=== PATIENT | female | born 1940 | race Caucasian/White ===

== ENCOUNTER → 2019-02-26 09:38 | Outpatient (BNVA) | payer MEDICARE, SELFPAY | PROVIDERS: PCP Nurse Practitioner Family; Visit Provider Nurse Practitioner Family | DX: I10 Essential (primary) hypertension (principal); E11.9 Type 2 diabetes mellitus without complications; E78.2 Mixed hyperlipidemia | CPT/HCPCS: 80053; 80061; 83036; 85025 ==

== ENCOUNTER → 2019-06-13 08:14 | Outpatient (BNVA) | payer MEDICARE, SELFPAY | PROVIDERS: PCP Nurse Practitioner Family; Visit Provider Nurse Practitioner Family | DX: Z12.11 Encounter for screening for malignant neoplasm of colon (principal) | CPT/HCPCS: 82270 ==

== ENCOUNTER → 2019-06-24 13:45 | Outpatient (BNVA) | payer MEDICARE, SELFPAY | PROVIDERS: PCP Nurse Practitioner Family; Visit Provider Nurse Practitioner Family | DX: Z12.11 Encounter for screening for malignant neoplasm of colon (principal); M54.6 Pain in thoracic spine | CPT/HCPCS: 81000; 81003 ==

== ENCOUNTER 2019-08-12 08:52 | Day surgery (SDC) | payer MEDICARE, SELFPAY ==
[2019-08-09 09:10] VITALS: BMI 3880.6
[2019-08-12 09:43] VITALS: BP 176/96; PULSE 97; RESP 18; TEMP 36.3; O2SAT 99
[2019-08-12] MEDS: sodium chloride 0.9% 1,000 ML 30 ML IV (09:44)
--- NOTE | 2019-08-12 09:45 | ANES.PREANE2 ---
Pre-Anesthetic Assessment Pre-Anesthetic Assessment: Height/Weight: Height 12.7 cm Weight 62.596 kg Temp Pulse Resp BP Pulse Ox 97.3 F L 97 18 176/96 99 08/12/19 09:43 08/12/19 09:43 08/12/19 09:43 08/12/19 09:43 08/12/19 09:43 Preop Diagnosis: polyps Proposed Procedure: Operation Date: 08/12/19 09:45 Proposed Procedures p Colonoscopy [id number] [id number](Not Applicable) - Mikhail Chen MD Familial anesthetic complications: None Was Beta Lynne taken within 24 hours: N/A Last intake: Intake Last Liquid Date 08/11/19 Last Liquid Time 22:00 Last Solid Date 08/10/19 Social: Social History: No alcohol and No tobacco Exam: Pre-Anes Outpt Exam: alert, oriented x 3, clear to auscultation bilaterally and regular rate & rhythm Airway: Cervical ROM: WNL MP: 2 Additional comments: missing CV/HEM: CV/HEM: HTN GI: GI: GERD Metabolic: Metabolic: DM and Hyperlipidemia Musc/skel: Musc/skel: Lower Back Pain Anesthetic Plan: ASA status: 2 Anesthesia: MAC Risk of > 500 ml blood loss (7ml/kg in children): No Meds/Allergies Current Medications: Current Medications Generic Name Dose Route Start Last Admin Trade Name Freq PRN Reason Stop Dose Admin Sodium Chloride 1,000 mls @ 30 ml s/hr 08/12/19 08:45 08/12/19 09:44 Sodium Chloride 0.9% IV 08/13/19 08:44 30 mls/hr .Q24H GONSALO Administration PFSH Anesthesia PFSH: Medical History (Updated 08/05/19 @ 14:06 by Mikhail Chen MD) Diabetes Hyperlipidemia Family History Mother Cancer Father Diabetes Social History (Updated 08/05/19 @ 13:47 by ERIBERTO Pineda) Smoking and tobacco status: former smoker Alcohol intake: never Marital status: / History of recent travel: No Data Anesthesia Cardiac Studies: No Data to Display
[2019-08-12 09:51] LABS: Glucose Point of Care 179 mg/dL (70-110)
[2019-08-12 11:16] VITALS: BP 147/90; PULSE 78; RESP 16; TEMP 36.3; O2SAT 98
[2019-08-12 11:29] VITALS: BP 134/87; PULSE 77; RESP 18; O2SAT 97
--- NOTE | 2019-08-12 12:42 | ANE.PACU2 ---
Inpatient post-anesthesia follow up: Airway intact: Yes Vital signs: Temperature 97.3 F Pulse Rate 77 Respiratory Rate 18 Blood Pressure 134/87 Pulse Oximetry 97 Oxygen Delivery Me thod Room Air Oxygen Flow Rate 4 Fraction of Inspir ed Oxygen Hydration adequate: Yes Nausea and vomiting: No Mental status: Baseline
--- NOTE | 2019-08-13 17:19 | W.PM.OPSUD ---
Surgery/Procedure H&P Update DATE OF PROCEDURE: August 13, 2019 DATE H&P PERFORMED: 08/05/19 PREOP DIAGNOSIS: polyps PLANNED PROCEDURE: Operation Date: 08/12/19 09:45 Proposed Procedures p Colonoscopy [id number] [id number](Not Applicable) - Mikhail Chen MD
== END 2019-08-12 09:40 | disposition home or self-care (01) ==
PROVIDERS: PCP Nurse Practitioner Family; Visit Provider Internal Medicine
PROC: 0DJD8ZZ Inspection of Lower Intestinal Tract, Via Natural or Artificial Opening Endoscopic (ICD-10-PCS; CPT 45378; principal; 2019-08-12 09:45)
DX: Z86.010 Personal history of colon polyps (principal); K21.9 Gastro-esophageal reflux disease without esophagitis; I10 Essential (primary) hypertension; E11.9 Type 2 diabetes mellitus without complications; E78.5 Hyperlipidemia, unspecified; Z87.891 Personal history of nicotine dependence
CPT/HCPCS: 12345; 36416; 45378; 82962; J2704; J7030

== ENCOUNTER → 2019-09-17 11:23 | Outpatient (BNVA) | payer MEDICARE, SELFPAY | PROVIDERS: PCP Nurse Practitioner Family; Visit Provider Nurse Practitioner Family | DX: E11.9 Type 2 diabetes mellitus without complications (principal); R19.7 Diarrhea, unspecified; I10 Essential (primary) hypertension | CPT/HCPCS: 80053; 80061; 82043; 83036; 85025 ==

== ENCOUNTER → 2019-12-16 12:04 | Outpatient (BNVA) | payer MEDICARE, SELFPAY | PROVIDERS: PCP Nurse Practitioner Family; Visit Provider Nurse Practitioner Family | DX: E11.9 Type 2 diabetes mellitus without complications (principal) | CPT/HCPCS: 80048; 83036 ==

== ENCOUNTER → 2020-01-28 13:33 | Outpatient (BNVA) | payer MEDICARE, SELFPAY | PROVIDERS: PCP Nurse Practitioner Family; Visit Provider Nurse Practitioner Family | DX: N30.01 Acute cystitis with hematuria (principal) | CPT/HCPCS: 81003 ==

== ENCOUNTER → 2020-03-16 09:19 | Outpatient (BNVA) | payer MEDICARE, SELFPAY | PROVIDERS: PCP Nurse Practitioner Family; Visit Provider Nurse Practitioner Family | DX: E11.9 Type 2 diabetes mellitus without complications (principal); E78.2 Mixed hyperlipidemia; I10 Essential (primary) hypertension; M79.10 Myalgia, unspecified site | CPT/HCPCS: 80053; 80061; 82306; 83036; 84443; 85025 ==

== ENCOUNTER → 2020-04-13 13:29 | Outpatient (BNVA) | payer MEDICARE, SELFPAY | PROVIDERS: PCP Nurse Practitioner Family; Visit Provider Nurse Practitioner Family | DX: N30.01 Acute cystitis with hematuria (principal) | CPT/HCPCS: 81003; 87077; 87086; 87184 ==

== ENCOUNTER → 2020-06-01 09:50 | Outpatient (BNVA) | payer MEDICARE, SELFPAY | PROVIDERS: PCP Nurse Practitioner Family; Visit Provider Nurse Practitioner Family | DX: E11.9 Type 2 diabetes mellitus without complications (principal); E78.2 Mixed hyperlipidemia; I10 Essential (primary) hypertension | CPT/HCPCS: 80053; 80061; 83036 ==

== ENCOUNTER → 2020-06-02 14:46 | Outpatient (BNVA) | payer MEDICARE, SELFPAY | PROVIDERS: PCP Nurse Practitioner Family; Visit Provider Nurse Practitioner Family | DX: M25.572 Pain in left ankle and joints of left foot (principal) | CPT/HCPCS: 73610 ==

== ENCOUNTER → 2020-06-08 09:51 | Outpatient (BNVA) | payer MEDICARE, SELFPAY | PROVIDERS: PCP Nurse Practitioner Family; Visit Provider Nurse Practitioner Family | DX: M25.572 Pain in left ankle and joints of left foot (principal) | CPT/HCPCS: 73610 ==

== ENCOUNTER → 2020-06-23 13:44 | Outpatient (BNVA) | payer MEDICARE, SELFPAY | PROVIDERS: PCP Nurse Practitioner Family; Visit Provider Podiatrist Foot & Ankle Surgery | DX: M25.572 Pain in left ankle and joints of left foot (principal); M79.89 Other specified soft tissue disorders; Z46.89 Encounter for fitting and adjustment of other specified devices; S82.832D Other fracture of upper and lower end of left fibula, subsequent encounter for closed fracture with routine healing; X58.XXXD Exposure to other specified factors, subsequent encounter | CPT/HCPCS: 73610; 97760; L1902 ==

== ENCOUNTER 2020-06-23 15:17 | Outpatient (CLI) | payer MEDICARE, SELFPAY | END 2020-06-23 15:18 | disposition home or self-care (01) | LOC: SPT 15:18 | PROVIDERS: PCP Nurse Practitioner Family; Visit Provider Podiatrist Foot & Ankle Surgery | DX: Z46.89 Encounter for fitting and adjustment of other specified devices (principal); S82.832D Other fracture of upper and lower end of left fibula, subsequent encounter for closed fracture with routine healing; X58.XXXD Exposure to other specified factors, subsequent encounter | CPT/HCPCS: 97760; L1902 ==

== ENCOUNTER → 2020-07-20 15:53 | Outpatient (BNVA) | payer MEDICARE, SELFPAY | PROVIDERS: PCP Nurse Practitioner Family; Visit Provider Nurse Practitioner Family | DX: R30.0 Dysuria (principal); R19.7 Diarrhea, unspecified | CPT/HCPCS: 81003; 87086 ==

== ENCOUNTER → 2020-08-03 15:21 | Outpatient (BNVA) | payer MEDICARE, SELFPAY | PROVIDERS: PCP Nurse Practitioner Family; Visit Provider Nurse Practitioner Family | DX: R19.7 Diarrhea, unspecified (principal) | CPT/HCPCS: 83630; 87493; 87506 ==

== ENCOUNTER → 2020-08-06 13:23 | Outpatient (BNVA) | payer MEDICARE, SELFPAY | PROVIDERS: PCP Nurse Practitioner Family; Visit Provider Nurse Practitioner Family | DX: N30.00 Acute cystitis without hematuria (principal) | CPT/HCPCS: 81000 ==

== ENCOUNTER → 2020-08-31 12:20 | Outpatient (BNVA) | payer MEDICARE, SELFPAY | PROVIDERS: PCP Nurse Practitioner Family; Visit Provider Nurse Practitioner Family | DX: E11.9 Type 2 diabetes mellitus without complications (principal); I10 Essential (primary) hypertension | CPT/HCPCS: 80053; 80061; 83036; 85025 ==

== ENCOUNTER → 2020-09-03 16:43 | Outpatient (BNVA) | payer MEDICARE, SELFPAY | PROVIDERS: PCP Nurse Practitioner Family; Visit Provider Nurse Practitioner Family | DX: I10 Essential (primary) hypertension (principal); E78.2 Mixed hyperlipidemia; N18.9 Chronic kidney disease, unspecified; E11.9 Type 2 diabetes mellitus without complications | CPT/HCPCS: 80048 ==

== ENCOUNTER 2020-09-13 16:15 | Emergency (ER) | payer MEDICARE, SELFPAY ==
[2020-09-13 16:32] VITALS: BP 164/95; PULSE 86; RESP 16; TEMP 36.5; O2SAT 95; BMI 24.9
--- NOTE | 2020-09-13 16:38 | ED_ITS ---
HPI - General Adult General: Chief complaint: Nausea/Vomiting/Diarrhea Stated complaint: diarrhea x 4-5 days Time Seen by Provider: 09/13/20 16:23 History of Present Illness: HPI narrative: This patient is a 80-year-old female who presents to the emergency department for diarrhea. Patient states this has been going on for about 5 days and has been so profound that she has not been able to leave the home. Patient denies any nausea vomiting. States the diarrhea settles down at night. Patient states she does get grumbling in her belly that have a lot of watery diarrhea. Patient denies fever. Will do medical evaluation treat as needed Onset (ago): day(s) Associated symptoms: Deny chest pain, dyspnea, headache(s), nausea, rash, palpitations or vomiting Review of Systems General: Reports: 10 or more systems reviewed and unremarkable except in HPI and below Const: Denies: fever(s), chills, body aches or fatigue Eyes: Denies: change in vision or blurry vision ENMT: Denies: throat pain, hoarseness or mouth pain Card: Denies: chest pain, palpitations, irregular heart rhythm, edema, swelling of feet/ankles or lightheadedness Resp: Denies: dyspnea, productive cough, non-productive cough, wheezing or pain on inspiration GI: Reports: diarrhea; Denies: abdominal pain, nausea or vomiting : Denies: flank pain, difficulty voiding, dysuria, urinary frequency, urinary urgency or urinary hesitancy Musc: Denies: neck pain, back pain, extremity pain, extremity swelling, joint pain, joint swelling, joint redness, joint warmth or limited range of motion Skin/Breast: Denies: rash, pruritus, erythema or skin tenderness Neuro: Denies: headache(s), numbness in extremities or weakness in extremities Psych: Denies: anxiety or depression PFSH ED PFSH: Medical History (Updated 09/13/20 @ 19:39 by Nithin Wisdom MD) Diabetes Essential hypertension Gluten intolerance Hyperlipidemia Retrolisthesis Surgical History History of ankle surgery History of cataract surgery History of colonoscopy 08-12-2019; repeat in August 2024 Family History Mother Cancer Father Diabetes Social History Smoking and tobacco status: never smoked Quit status (tobacco): has quit using tobacco Year quit tobacco: 1979 Former quit date comment: PPD x 10 yrs Second hand smoke exposure: No Alcohol intake: never Lives independently: Yes Marital status: / Current occupational status: retired History of recent travel: No Current gender identity: Female Physical Exam Const: COMMON NORMALS: no acute distress, average body habitus, patient oriented x3, no limitations, healthy appearing, alert and well nourished HENMT: COMMON NORMALS: normocephalic, atraumatic, hearing grossly normal bilaterally, external ears normal, EAC's normal, TM's normal bilaterally, Normal external nose present, Normal nasal mucous membranes and turbinates present, moist oral mucous membranes, oropharynx normal, dentition normal and gingiva normal HEAD & SCALP: normocephalic and atraumatic NOSE: Normal external nose present and Normal nasal mucous membranes and turbinates present EXTERNAL EAR: Yes external ears normal EXTERNAL AUDITORY CANAL: EAC's normal TYMPANIC MEMBRANE: TM's normal bilaterally Neck/C-Spine: COMMON NORMALS: full ROM, no lymphadenopathy, supple, no meningeal signs, no JVD, Thyroid normal and No carotid bruits THYROID: Thyroid normal Chest: COMMONS NORMALS: normal inspection of the chest, normal palpation of entire chest wall, normal inspection of the breasts and normal palpation of the breasts Breast/axilla inspection: Yes normal inspection of the breasts BREAST/AXILLA PALPATION: Yes normal palpation of the breasts Resp: COMMON NORMALS: normal respiratory effort, No retractions, No use of accessory muscles, clear to auscultation bilaterally and percussion normal AUSCULTATION: clear to auscultation bilaterally PERCUSSION: percussion normal Cardio: COMMON NORMALS: no JVD, regular rate, regular rhythm, S1 normal heart sound present, S2 normal heart sound present, No gallops present (Cardio), No clicks present (Cardio), No murmurs present (Cardio), No rub (Cardio) and Peripheral pulses 2+ throughout RATE: regular rate RHYTHM: regular rhythm HEART SOUNDS: S1 normal heart sound present and S2 normal heart sound present PERIPHERAL PULSES: Peripheral pulses 2+ throughout GI: COMMON NORMALS: Normal to inspection, nondistended, normoactive bowel sounds present, Soft to palpation, non-tender, No hepatosplenomegaly present, no masses and no bruits PALPATION: Yes Soft to palpation and Yes No hepatosplenomegaly present Back/Pelvis: COMMON NORMALS: thoracic and lumbar spine normal to inspection, no thoracic nor lumbar tenderness, thoraco-lumbar ROM normal and straight leg raise negative bilaterally Extremity: COMMON NORMALS: normal to inspection, full ROM, capillary refill normal, no joint enlargement, no clubbing, cyanosis or edema, no calf tenderness and no pedal edema Neuro: COMMON NORMALS: patient oriented x3 SENSORIUM/ORIENTATION: Yes alert MENINGEAL SIGNS: Yes no meningeal signs Course Reevaluation(s): Reevaluation #1: Urine shows 1+ leukocyte esterase but is significant and squamous cell epithelials and negative nitrates. We will have laboratory sent for culture. Patient presents with diarrhea. Is been intermittent for the past several days. Negative evaluation in the emergency department. Will discharge home with Flagyl. Patient is to monitor diarrhea closely take only Pepto-Bismol to help slow down diarrhea. Increase daily fiber intake. Follow-up with PCP in 2 to 3 days Vital Signs: Vital signs: Vital Signs Temperature 97.7 F 09/13/20 16:32 Pulse Rate 70 09/13/20 18:35 Respiratory Rate 18 09/13/20 18:35 Blood Pressure 123/66 09/13/20 18:35 Pulse Oximetry 94 09/13/20 18:35 MDM - General Adult MDM Narrative: Medical decision making narrative: This patient is a 80-year-old female who presents to the emergency department for diarrhea. Latrice romeo states this has been going on for about 5 days and has been so profound that she has not been able to leave the home. Patient denies any nausea vomiting. States the diarrhea settles down at night. Patient states she does get grumbling in her belly that have a lot of watery diarrhea. Patient denies fever. Will do medical evaluation treat as needed Urine shows 1+ leukocyte esterase but is significant and squamous cell epithelials and negative nitrates. We will have laboratory sent for culture. Patient presents with diarrhea. Is been intermittent for the past several days. Negative evaluation in the emergency department. Will discharge home with Flagyl. Patient is to monitor diarrhea closely take only Pepto-Bismol to help slow down diarrhea. Increase daily fiber intake. Follow-up with PCP in 2 to 3 days Lab Data: Labs: Lab Results 09/13/20 09/13/20 09/13/20 Range/Units 17:11 17:11 19:10 WBC 8.0 (4.0-10.0) 10^3/ uL RBC 4.52 (4.1-5.3) 10^6/u L Hgb 14.2 (11.5-15.3) g/dL Hct 42.8 (37.0-47.0) % MCV 94.7 (81-99) fL MCH 31.4 (28.0-34.0) pg MCHC 33.2 (30.0-36.0) g/dL RDW 12.9 (12.1-15.1) % Plt Count 347 (130-400) 10^3/c mm MPV 9.9 (7.4-10.4) fL Neut % (Auto) 56.9 % Lymph % (Auto) 30.0 % Morrow % (Auto) 10.5 % Eos % (Auto) 1.5 % Baso % (Auto) 0.7 % Neut # (Auto) 4.56 (1.8-7.7) 10^3/u L Lymph # (Auto) 2.4 (0.8-4.8) 10^3/u L Morrow # (Auto) 0.8 (0.2-0.9) 10^3/u L Eos # (Auto) 0.1 (0.0-0.8) 10^3/u L Baso # (Auto) 0.1 (0.0-0.1) 10^3/u L Nucleated RBC % (a uto) 0 % Nucleated RBCs # 0.0 /100WBC Sodium 138 (136-145) mmol/L Potassium 4.1 (3.5-5.1) mmol/L Chloride 103 (98-107) mmol/L Carbon Dioxide 19 L (22-29) mmol/L Anion Gap 20.1 H (5-19) BUN 19 (8-23) mg/dL Creatinine 1.1 H (0.5-0.9) mg/dL GFR Calculation Not Reportable Glucose 111 (65-115) mg/dL Calculated Osmolal ity 289 (285-295) mOsm/k g Calcium 9.0 (8.5-10.5) mg/dL Total Bilirubin 0.3 (0.15-1.2) mg/dL AST 14 (0-32) U/L ALT 14 (0-33) U/L Alkaline Phosphata se 104 (35-105) IU/L Total Protein 7.2 (6.6-8.7) g/dL Albumin 4.2 (3.5-5.2) g/dL Globulin 3.0 (1.3-4.6) g/dL Urine Color Yellow (Yellow) Urine Appearance Clear (CLEAR) Urine pH 5 (5-7) Ur Specific Gravit y 1.010 (1.005-1.030) Urine Protein Neg (Negative) Urine Glucose (UA) Norm (Normal) Urine Ketones Negative (Negative) Urine Blood Neg (Negative) Urine Nitrate Negative (Negative) Urine Bilirubin Neg (Negative) Urine Urobilinogen Norm (Negative) mg/dL Ur Leukocyte Apryl ase 1+ H (Negative) Urine RBC 0-4 H (0-2) /hpf Urine WBC 0-4 H (0-5) /hpf Ur Squamous Epith Cells 0-4 H (0-5) /hpf Amorphous Sediment Not Reportable Urine Bacteria Trace (NONE) /hpf Imaging Data^: KUB: Attestation: I personally reviewed and interpreted this imaging study as follows: Radiologist's impression: IMPRESSION: Negative abdomen. No acute findings. Discharge Plan Discharge Patient Disposition: Home Clinical Impression: Diarrhea Condition: Stable Prescriptions: New metronidazole [Flagyl] 500 mg tablet 500 mg PO BID 7 Days Qty: 14 RF: 0 No Action biotin 5 mg capsule 5 mg PO BID RF: 0 coenzyme Q10 [CoQ-10] 100 mg capsule 100 mg PO DAILY RF: 0 omega 1-rrm-tyd-fish oil [Fish Oil] 1,000 mg (120 mg-180 mg) capsule 1 cap PO DAILY RF: 0 (DME) ASO to the left See Rx Instructions .Route .MEDSUPPLY Qty: 1 RF: 0 omeprazole 20 mg capsule,delayed release(DR/EC) 20 mg PO DAILY PRN (Reason: gerd) Qty: 90 RF: 3 (DME) cam boot sm See Rx Instructions .Route .MEDSUPPLY Qty: 1 RF: 0 Tylenol Extra Strength 500 mg Tablet 1,000 mg PO PRN RF: 0 Pepto-Bismol 262 mg/15 mL Suspension 262 - 524 mg PO PRN RF: 0 atorvastatin 20 mg tablet 20 mg PO BEDTIME RF: 0 glipizide 5 mg tablet extended release 24hr 10 mg PO QAM RF: 0 benazepril 40 mg tablet 20 mg PO QAM RF: 0 Discharge Orders: Discharge ED (Routine); Ordered 09/13/20 Ordered By: Nithin Wisdom Referrals: Tori Rivera FNP [Primary Care Provider] - Discharge Diet: Advance as tolerated Discharge Activity: Resume usual activity Patient Instructions: Opioid Safety Activity Restrictions/Additional Instructions: Negative evaluation in the emergency department. Will discharge home with Flagyl. Patient is to monitor diarrhea closely take only Pepto-Bismol to help slow down diarrhea. Increase daily fiber intake. Follow-up with PCP in 2 to 3 days Coding Level of Care Code ED Supervisor Evaporator for Chg Fwd Exam Comprehensive
--- NOTE | 2020-09-13 16:38 | XRR_ITS ---
PROCEDURE INFORMATION: Exam: XR Abdomen Exam date and time: 09/13/2020 4:38 PM Age: 80 years old Clinical indication: Other: Diarrhea x 4 days; Additional info: Abd pain TECHNIQUE: Imaging protocol: XR of the abdomen. Views: 2 Views. Upright and supine views. COMPARISON: No relevant prior studies available. FINDINGS: Gastrointestinal tract: Normal. No bowel dilation. Intraperitoneal space: Normal. No free air. Bones/joints: Demineralized bones. Diffuse spondyloarthropathy. XR/XR abdomen min 2V [id number] IMPRESSION: Negative abdomen. No acute findings.
[2020-09-13 16:40] VITALS: BP 164/95; PULSE 82; RESP 16; O2SAT 95
[2020-09-13] MEDS: sodium chloride 0.9% 500 ML IV (17:09)
[2020-09-13 17:45] LABS: Basophils # 0.1 10^3/uL (0.0-0.1); Basophils % 0.7 %; Eosinophils # 0.1 10^3/uL (0.0-0.8); Eosinophils % 1.5 %; Hematocrit 42.8 % (37.0-47.0); Hemoglobin 14.2 g/dL (11.5-15.3); Lymphocytes # 2.4 10^3/uL (0.8-4.8); Mean Corpuscular HGB Conc 33.2 g/dL (30.0-36.0); Mean Corpuscular Hemoglobin 31.4 pg (28.0-34.0); Mean Corpuscular Volume 94.7 fL (81-99); Mean Platelet Volume 9.9 fL (7.4-10.4); Monocytes # 0.8 10^3/uL (0.2-0.9); Monocytes % 10.5 %; Neutrophils # 4.56 10^3/uL (1.8-7.7); Neutrophils % 56.9 %; Nucleated Red Blood Cells % 0 %; Platelet Count 347 10^3/cmm (130-400); Red Blood Count 4.52 10^6/uL (4.1-5.3); Red Cell Distribution Width 12.9 % (12.1-15.1)
[2020-09-13 18:12] LABS: Alanine Aminotransferase 14 U/L (0-33); Albumin Level 4.2 g/dL (3.5-5.2); Alkaline Phosphatase 104 IU/L (35-105); Anion Gap 20.1 (5-19); Aspartate Amino Transferase 14 U/L (0-32); Blood Urea Nitrogen 19 mg/dL (8-23); Carbon Dioxide 19 mmol/L (22-29); Chloride 103 mmol/L (98-107); Glucose 111 mg/dL (65-115); Osmolality Calculated 289 mOsm/kg (285-295); Potassium 4.1 mmol/L (3.5-5.1); Sodium 138 mmol/L (136-145); Total Bilirubin 0.3 mg/dL (0.15-1.2); Total Protein 7.2 g/dL (6.6-8.7)
[2020-09-13 18:35] VITALS: BP 123/66; PULSE 70; RESP 18; O2SAT 94
[2020-09-13 19:54] LABS: Bilirubin Urine Neg (Negative); Blood Urine Neg (Negative); Glucose Urine UA Norm (Normal); Ketones Urine Negative (Negative); Nitrate Urine Negative (Negative); Protein Urine Neg (Negative); Urine Appearance Clear (CLEAR); Urine Color Yellow (Yellow); Urobilinogen Urine Norm (Negative); pH Urine 5 (5-7)
[2020-09-13 19:55] LABS: Add Urine Microscopic? YES; Leukocyte Esterase Urine 1+ (Negative)
[2020-09-13 19:58] LABS: Add Urine Culture? No; Bacteria Urine TRACE /hpf; RBC Urine 0-4 /hpf (0-2); Squamous Epithelial Cell Urine 0-4 /hpf (0-5); WBC Urine 0-4 /hpf (0-5)
[2020-09-13 20:18] VITALS: BP 179/76; PULSE 74; RESP 18; O2SAT 97
== END 2020-09-13 20:21 | disposition home or self-care (01) ==
PROVIDERS: Emergency Provider Emergency Medicine; PCP Nurse Practitioner Family
DX: R19.7 Diarrhea, unspecified (principal); Z79.84 Long term (current) use of oral hypoglycemic drugs; E11.9 Type 2 diabetes mellitus without complications; I10 Essential (primary) hypertension; E78.5 Hyperlipidemia, unspecified; Z87.891 Personal history of nicotine dependence
CPT/HCPCS: 74019; 80053; 81001; 85025; 96360; 99284; J7040

== ENCOUNTER → 2020-09-21 15:56 | Outpatient (BNVA) | payer MEDICARE, SELFPAY | PROVIDERS: PCP Nurse Practitioner Family; Visit Provider Nurse Practitioner Family | DX: N30.00 Acute cystitis without hematuria (principal); R19.7 Diarrhea, unspecified | CPT/HCPCS: 80053; 81003; 85025 ==

== ENCOUNTER 2020-10-07 14:14 | Emergency (ER) | payer MEDICARE, SELFPAY ==
[2020-10-07 14:15] VITALS: BP 173/95; PULSE 71; RESP 16; TEMP 36.7; O2SAT 92; BMI 24.5
--- NOTE | 2020-10-07 15:52 | ED_ITS ---
Documented by User: MICH Blanco 10/07/20 16:20 HPI - Nausea/Vomiting/Diarrhea General: Chief complaint: Nausea/Vomiting/Diarrhea Stated complaint: N/D X 3WEEKS Time Seen by Provider: 10/07/20 15:22 Source: patient Mode of arrival: ambulatory Limitations: no limitations History of Present Illness: HPI Narrative: Patient is a nice 80-year-old fem luis who presents to ED today with a complaint of diarrhea over the past 3 weeks. Patient tells me she is having approximately 6 watery diarrhea stools daily. Diarrhea is not accompanied by any abdominal pain. She is continuing to eat and drink normally. She has not noticed any hematochezia or melanotic stools. She has no nausea or vomiting. No fevers. Patient has been seen previously back in July for complaints of diarrhea and again in our ED earlier this month. PCP has changed a few medications to see if this would help but patient has not noticed much difference. She had a colonoscopy in 07/2019 which was normal. MD elicited complaint: diarrhea Onset (ago): week(s) Description of vomiting: watery Associated nausea: No Associated abdominal pain: No Location of pain: None Pain consistency: colicky Exacerbating factors: none Relieving factors: none Associated symtoms: Reports no associated symptoms; Denies change in vision, chest pain, dysuria, fatigue, headache(s), malaise or nausea Review of Systems Const: Denies: fever(s), chills, body aches, fatigue or malaise Eyes: Denies: change in vision or blurry vision ENMT: Denies: throat pain or odynophagia Card: Denies: chest pain Resp: Denies: dyspnea GI: Reports: diarrhea; Denies: abdominal pain, nausea, vomiting, hematemesis, heartburn, belching, excessive flatus, rectal swelling, hematochezia or melena : Denies: flank pain or dysuria Musc: Denies: back pain Skin/Breast: Denies: rash Neuro: Denies: headache(s) [facility] ED PFSH: Medical History (Updated 10/07/20 @ 18:56 by DIANA Zhang) Diabetes Essential hypertension Gluten intolerance Hyperlipidemia Retrolisthesis Surgical History History of ankle surgery History of cataract surgery History of colonoscopy 08-12-2019; repeat in August 2024 Family History Mother Cancer Father Diabetes Social History Quit status (tobacco): has quit using tobacco Year quit tobacco: 1979 Former quit date comment: PPD x 10 yrs Second hand smoke exposure: No Alcohol intake: never Caregiver/support person: Yes Lives independently: Yes Household members: none Marital status: / service: No Current occupational status: retired History of recent travel: No Current gender identity: Female Special flaco needs: No Physical Exam Const: COMMON NORMALS: no acute distress, average body habitus, patient oriented x3, no limitations, healthy appearing, alert and well nourished HENMT: COMMON NORMALS: normocephalic and atraumatic HEAD & SCALP: normocephalic and atraumatic Resp: COMMON NORMALS: normal respiratory effort and clear to auscultation bilaterally AUSCULTATION: clear to auscultation bilaterally Cardio: COMMON NORMALS: regular rate and regular rhythm RATE: regular rate RHYTHM: regular rhythm GI: COMMON NORMALS: Normal to inspection, nondistended, normoactive bowel sounds present, Soft to palpation, non-tender, No hepatosplenomegaly present and no masses INSPECTION: Yes normal to inspection AUSCULTATION: Yes normoactive bowel sounds PALPATION: Yes Soft to palpation and Yes No hepatosplenomegaly present Neuro: COMMON NORMALS: patient oriented x3 SENSORIUM/ORIENTATION: Yes alert Skin: COMMON NORMALS: no rashes or lesions noted GENERAL SKIN EXAM: no rashes or lesions noted Course Vital Signs: Vital signs: Vital Signs Temperature 98.1 F 10/07/20 14:15 Pulse Rate 71 10/07/20 18:55 Respiratory Rate 18 10/07/20 18:55 Blood Pressure 162/81 10/07/20 18:55 Pulse Oximetry 95 10/07/20 18:55 MDM - Nausea/Vomiting/Diarrhea Lab Data: Labs: Lab Results 10/07/20 10/07/20 10/07/20 Range/Units 16:35 16:40 16:40 WBC 10.0 (4.0-10.0) 10^3/ uL RBC 4.89 (4.1-5.3) 10^6/u L Hgb 15.3 (11.5-15.3) g/dL Hct 46.6 (37.0-47.0) % MCV 95.3 (81-99) fl MCH 31.3 (28.0-34.0) pg MCHC 32.8 (30.0-36.0) g/dL RDW 13.5 (12.1-15.1) % Plt Count 363 (130-400) 10^3/c mm MPV 10.4 (7.4-10.4) fL Neut % (Auto) 59.7 % Lymph % (Auto) 28.4 % Culberson % (Auto) 9.1 % Eos % (Auto) 1.8 % Baso % (Auto) 0.6 % Neut # (Auto) 5.96 (1.8-7.7) 10^3/u L Lymph # (Auto) 2.8 (0.8-4.8) 10^3/u L [place]berson # (Auto) 0.9 (0.2-0.9) 10^3/u L Eos # (Auto) 0.2 (0.0-0.8) 10^3/u L Baso # (Auto) 0.1 (0.0-0.1) 10^3/u L Nucleated RBC % (a uto) 0 % Nucleated RBCs # 0.0 /100WBC Sodium 140 (136-145) mmol/L Potassium 3.9 (3.5-5.1) mmol/L Chloride 104 (98-107) mmol/L Carbon Dioxide 18 L (22-29) mmol/L Anion Gap 21.9 H (5-19) BUN 25 H (8-23) mg/dL Creatinine 1.0 H (0.5-0.9) mg/dL GFR Calculation Not Reportable Glucose 103 (65-115) mg/dL Calculated Osmolal ity 295 (285-295) mOsm/k g Calcium 9.4 (8.5-10.5) mg/dL Total Bilirubin 0.2 (0.15-1.2) mg/dL AST 17 (0-32) U/L ALT 16 (0-33) U/L Alkaline Phosphata se 68 (35-105) IU/L Total Protein 8.0 (6.6-8.7) g/dL Albumin 4.7 (3.5-5.2) g/dL Globulin 3.3 (1.3-4.6) g/dL Lipase 63 H (13-60) U/L Urine Color Yellow (Yellow) Urine Appearance Clear (CLEAR) Urine pH 5 (5-7) Ur Specific Gravit y 1.010 (1.005-1.030) Urine Protein Neg (Negative) Urine Glucose (UA) Norm (Normal) Urine Ketones 1+ H (Negative) Urine Blood Neg (Negative) Urine Nitrate Negative (Negative) Urine Bilirubin Neg (Negative) Urine Urobilinogen Neg (Negative) mg/dL Ur Leukocyte Apryl ase Negative (Negative) Discharge Plan Discharge Patient Disposition: Home Clinical Impression: Diarrhea Qualifiers: Diarrhea type: functional diarrhea Qualified Code(s): K59.1 - Functional diarrhea Condition: Stable Prescriptions: No Action atorvastatin 20 mg tablet 20 mg PO BEDTIME Qty: 90 RF: 3 biotin 5 mg capsule 5 mg PO BID RF: 0 coenzyme Q10 [CoQ-10] 100 mg capsule 100 mg PO DAILY RF: 0 omega 6-zlc-uoq-fish oil [Fish Oil] 1,000 mg (120 mg-180 mg) capsule 1 cap PO DAILY RF: 0 (DME) ASO to the left See Rx Instructions .Route .MEDSUPPLY Qty: 1 RF: 0 omeprazole 20 mg capsule,delayed release(DR/EC) 20 mg PO DAILY PRN (Reason: gerd) Qty: 90 RF: 3 (DME) cam boot sm See Rx Instructions .Route .MEDSUPPLY Qty: 1 RF: 0 glipizide 5 mg tablet extended release 24hr 5 mg PO BID@1200,1800 RF: 0 acetaminophen [Tylenol Extra Strength] 500 mg Tablet 1,000 mg PO PRN RF: 0 bismuth subsalicylate [Pepto-Bismol] 262 mg/15 mL Suspension 262 - 524 mg PO PRN RF: 0 benazepril 40 mg tablet 20 mg PO DAILY RF: 0 Discharge Orders: Discharge ED (Routine); Ordered 10/07/20 Ordered By: Genaro Barcenas Referrals: Tori Rivera, [employer] [Primary Care Provider] - Discharge Diet: Usual diet Discharge Activity: Increase activity as tolerated Patient Instructions: Opioid Safety Activity Restrictions/Additional Instructions: Try to increase fiber in your diet. You can do this by eating fibrous foods or by adding Metamucil 3 times daily with each meal. Make sure to drink plenty of water with medications. Follow-up with primary care for further instruction. Return to the ER for new concerns. Sign Out Sign Out Data: Patient Sign Out occurred on 10/07/20 at 17:13. Patient's care was discussed, and care was transferred from to Genaro Barcenas. Coding Level of Care Code ED Pattern Lease Inspector for Chg Fwd Exam Detailed Documented by User: DIANA Zhang 10/07/20 19:11 HPI - Nausea/Vomiting/Diarrhea General: Chief complaint: Nausea/Vomiting/Diarrhea Stated complaint: N/D X 3WEEKS Time Seen by Provider: 10/07/20 15:22 [facility] ED PFSH: Medical History (Updated 10/07/20 @ 18:56 by DIANA Zhang) Diabetes Essential hypertension Gluten intolerance Hyperlipidemia Retrolisthesis Surgical History History of ankle surgery History of cataract surgery History of colonoscopy 08-12-2019; repeat in August 2024 Family History Mother Cancer Father Diabetes Social History Quit status (tobacco): has quit using tobacco Year quit tobacco: 1979 Former quit date comment: PPD x 10 yrs Second hand smoke exposure: No Alcohol intake: never Caregiver/support person: Yes Lives independently: Yes Household members: none Marital status: / service: No Current occupational status: retired History of recent travel: No Current gender identity: Female Special flaco needs: No Course Vital Signs: Vital signs: Vital Signs Temperature 98.1 F 10/07/20 14:15 Pulse Rate 71 10/07/20 18:55 Respiratory Rate 18 10/07/20 18:55 Blood Pressure 162/81 10/07/20 18:55 Pulse Oximetry 95 10/07/20 18:55 MDM - Nausea/Vomiting/Diarrhea MDM Narrative: Medical decision making narrative: Patient comes in today with frequent diarrhea stools. Patient reports problems with diarrhea for the last 3 weeks. Although patient does admit this is a ongoing problem for her. Patient thinks that it due to some of her diabetes medications but she has had some changes without much improvement in her diarrhea. Patient reports only thing that kind of works is Pepto-Bismol although it has not been working so well lately. Exam notes a soft abdomen with some mild tenderness in the left lower quadrant. Laboratory values were unremarkable. Urine was clear. Differential diagnosis includes but not limited to diverticulitis, functional diarrhea, gastroenteritis. CT scan indicated no acute cause for diarrhea. Patient does have some diverticulosis without any signs of diverticulitis. I discussed with patient dietary options I recommended increasing fiber in her diet and maybe adding Metamucil 3 times daily to help bulk up her stools and help control diarrhea. Patient reported understanding of care plan and need for follow-up with primary care for further instructions. Lab Data: Labs: Lab Results 10/07/20 10/07/20 10/07/20 Range/Units 16:35 16:40 16:40 WBC 10.0 (4.0-10.0) 10^3/ uL RBC 4.89 (4.1-5.3) 10^6/u L Hgb 15.3 (11.5-15.3) g/dL Hct 46.6 (37.0-47.0) % MCV 95.3 (81-99) fl MCH 31.3 (28.0-34.0) pg MCHC 32.8 (30.0-36.0) g/dL RDW 13.5 (12.1-15.1) % Plt Count 363 (130-400) 10^3/c mm MPV 10.4 (7.4-10.4) fL Neut % (Auto) 59.7 % Lymph % (Auto) 28.4 % Culberson % (Auto) 9.1 % Eos % (Auto) 1.8 % Baso % (Auto) 0.6 % Neut # (Auto) 5.96 (1.8-7.7) 10^3/u L Lymph # (Auto) 2.8 (0.8-4.8) 10^3/u L [place]berson # (Auto) 0.9 (0.2-0.9) 10^3/u L Eos # (Auto) 0.2 (0.0-0.8) 10^3/u L Baso # (Auto) 0.1 (0.0-0.1) 10^3/u L Nucleated RBC % (a uto) 0 % Nucleated RBCs # 0.0 /100WBC Sodium 140 (136-145) mmol/L Potassium 3.9 (3.5-5.1) mmol/L Chloride 104 (98-107) mmol/L Carbon Dioxide 18 L (22-29) mmol/L Anion Gap 21.9 H (5-19) BUN 25 H (8-23) mg/dL Creatinine 1.0 H (0.5-0.9) mg/dL GFR Calculation Not Reportable Glucose 103 (65-115) mg/dL Calculated Osmolal ity 295 (285-295) mOsm/k g Calcium 9.4 (8.5-10.5) mg/dL Total Bilirubin 0.2 (0.15-1.2) mg/dL AST 17 (0-32) U/L ALT 16 (0-33) U/L Alkaline Phosphata se 68 (35-105) IU/L Total Protein 8.0 (6.6-8.7) g/dL Albumin 4.7 (3.5-5.2) g/dL Globulin 3.3 (1.3-4.6) g/dL Lipase 63 H (13-60) U/L Urine Color Yellow (Yellow) Urine Appearance Clear (CLEAR) Urine pH 5 (5-7) Ur Specific Gravit y 1.010 (1.005-1.030) Urine Protein Neg (Negative) Urine Glucose (UA) Norm (Normal) Urine Ketones 1+ H (Negative) Urine Blood Neg (Negative) Urine Nitrate Negative (Negative) Urine Bilirubin Neg (Negative) Urine Urobilinogen Neg (Negative) mg/dL Ur Leukocyte Apryl ase Negative (Negative) Discharge Plan Discharge Patient Disposition: Home Clinical Impression: Diarrhea Qualifiers: Diarrhea type: functional diarrhea Qualified Code(s): K59.1 - Functional diarrhea Condition: Stable Prescriptions: No Action atorvastatin 20 mg tablet 20 mg PO BEDTIME Qty: 90 RF: 3 biotin 5 mg capsule 5 mg PO BID RF: 0 coenzyme Q10 [CoQ-10] 100 mg capsule 100 mg PO DAILY RF: 0 omega 1-kpk-alz-fish oil [Fish Oil] 1,000 mg (120 mg-180 mg) capsule 1 cap PO DAILY RF: 0 (DME) ASO to the left See Rx Instructions .Route .MEDSUPPLY Qty: 1 RF: 0 omeprazole 20 mg capsule,delayed release(DR/EC) 20 mg PO DAILY PRN (Reason: gerd) Qty: 90 RF: 3 (DME) cam boot sm See Rx Instructions .Route .MEDSUPPLY Qty: 1 RF: 0 glipizide 5 mg tablet extended release 24hr 5 mg PO BID@1200,1800 RF: 0 acetaminophen [Tylenol Extra Strength] 500 mg Tablet 1,000 mg PO PRN RF: 0 bismuth subsalicylate [Pepto-Bismol] 262 mg/15 mL Suspension 262 - 524 mg PO PRN RF: 0 benazepril 40 mg tablet 20 mg PO DAILY RF: 0 Discharge Orders: Discharge ED (Routine); Ordered 10/07/20 Ordered By: Genaro Barcenas Referrals: Tori Rivera FNP [Primary Care Provider] - Discharge Diet: Usual diet Discharge Activity: Increase activity as tolerated Patient Instructions: Opioid Safety Activity Restrictions/Additional Instructions: Try to increase fiber in your diet. You can do this by eating fibrous foods or by adding Metamucil 3 times daily with each meal. Make sure to drink plenty of water with medications. Follow-up with primary care for further instruction. Return to the ER for new concerns. Sign Out Sign Out Data: Patient Sign Out occurred on 10/07/20 at 17:13. Patient's care was discussed, and care was transferred from to Genaro Barcenas. Coding Level of Care Code ED Pattern Lease Inspector for Rajan Fwd Exam Detailed
[2020-10-07 16:40] VITALS: BP 168/102; PULSE 68; RESP 18; O2SAT 96
[2020-10-07 16:54] LABS: Add Urine Microscopic? NO; Charge for UA Resulting for Rev
[2020-10-07 16:55] LABS: Basophils # 0.1 10^3/uL (0.0-0.1); Basophils % 0.6 %; Eosinophils # 0.2 10^3/uL (0.0-0.8); Eosinophils % 1.8 %; Hematocrit 46.6 % (37.0-47.0); Hemoglobin 15.3 g/dL (11.5-15.3); Lymphocytes # 2.8 10^3/uL (0.8-4.8); Lymphocytes % 28.4 %; Mean Corpuscular HGB Conc 32.8 g/dL (30.0-36.0); Mean Corpuscular Hemoglobin 31.3 pg (28.0-34.0); Mean Corpuscular Volume 95.3 fl (81-99); Mean Platelet Volume 10.4 fL (7.4-10.4); Monocytes # 0.9 10^3/uL (0.2-0.9); Monocytes % 9.1 %; Neutrophils # 5.96 10^3/uL (1.8-7.7); Neutrophils % 59.7 %; Nucleated Red Blood Cells % 0 %; Platelet Count 363 10^3/cmm (130-400); Red Blood Count 4.89 10^6/uL (4.1-5.3); Red Cell Distribution Width 13.5 % (12.1-15.1)
[2020-10-07 16:58] LABS: Glucose Urine UA Norm (Normal); Protein Urine Neg (Negative); Urine Appearance Clear (CLEAR); Urine Color Yellow (Yellow); pH Urine 5 (5-7)
[2020-10-07 16:59] LABS: Bilirubin Urine Neg (Negative); Blood Urine Neg (Negative); Ketones Urine 1+ (Negative); Leukocyte Esterase Urine Negative (Negative); Nitrate Urine Negative (Negative); Urobilinogen Urine Neg (Negative)
[2020-10-07 17:11] VITALS: BP 140/72; PULSE 69; RESP 16; O2SAT 97
[2020-10-07 17:13] LABS: Alanine Aminotransferase 16 U/L (0-33); Albumin Level 4.7 g/dL (3.5-5.2); Alkaline Phosphatase 68 IU/L (35-105); Aspartate Amino Transferase 17 U/L (0-32); Blood Urea Nitrogen 25 mg/dL (8-23); Calcium 9.4 mg/dL (8.5-10.5); Carbon Dioxide 18 mmol/L (22-29); Chloride 104 mmol/L (98-107); Globulin 3.3 g/dL (1.3-4.6); Glucose 103 mg/dL (65-115); Lipase 63 U/L (13-60); Osmolality Calculated 295 mOsm/kg (285-295); Sodium 140 mmol/L (136-145); Total Bilirubin 0.2 mg/dL (0.15-1.2)
[2020-10-07 17:18] LABS: Anion Gap 21.9 (5-19); Potassium 3.9 mmol/L (3.5-5.1)
--- NOTE | 2020-10-07 17:35 | CTR_ITS ---
PROCEDURE INFORMATION: Exam: CT Abdomen And Pelvis With Contrast Exam date and time: 10/07/2020 5:35 PM Age: 80 years old Clinical indication: Abdominal pain; Acute; Additional info: Abd pain, persistent recurrent diarrhea TECHNIQUE: Imaging protocol: Computed tomography of the abdomen and pelvis with contrast. Radiation optimization: All CT scans at this facility use at least one of these dose optimization techniques: automated exposure control; mA and/or kV adjustment per patient size (includes targeted exams where dose is matched to clinical indication); or iterative reconstruction. Contrast material: VISI 320; Contrast volume: 95 ml; Contrast route: INTRAVENOUS (IV); COMPARISON: CR (ABDOMEN, ) 09/13/2020 4:45 PM RADIATION DOSE METRICS: Total DLP (mGy-cm): 954.13 FINDINGS: Lungs: Lung bases are clear. Liver: The liver is normal. Gallbladder and bile ducts: The gallbladder is normal. There is no biliary dilation. Pancreas: The pancreas is unremarkable. Spleen: Splenic size is normal. There are scattered calcifications consistent with healed granulomas. Adrenal glands: The adrenal glands are unremarkable. Kidneys and ureters: The kidneys are unremarkable. No hydronephrosis or stones. No ureteral dilation. Stomach and bowel: The stomach is decompressed, preventing meaningful evaluation of wall thickness. The small bowel is nondilated. There is mild sigmoid colonic diverticulosis without evidence of diverticulitis. Appendix: The appendix is normal. Intraperitoneal space: There is no free air or significant intraperitoneal free fluid. Vasculature: There is moderate aortic atherosclerotic disease. The portal, splenic and superior mesenteric veins are patent. Lymph nodes: There is no lymphadenopathy in the retroperitoneum, mesentery, pelvis or inguinal regions. Urinary bladder: Unremarkable as visualized. Reproductive: The uterus is unremarkable. There is no adnexal mass or large cyst. Bones/joints: Age-indeterminate T9 mild compression fracture. Moderate lower lumbar degenerative disc disease. Soft tissues: The abdominal wall is intact. CT/CT abdomen pelvis w con* [id number] IMPRESSION: 1. No acute findings. 2. Incidental findings above. Radiation Dose CTDIVOL = (mGy): DLP = 954.13 (mGy-cm)
[2020-10-07] MEDS: iodixanol 320 mg/mL 100mL Btl IV (18:27)
[2020-10-07 18:55] VITALS: BP 162/81; PULSE 71; RESP 18; O2SAT 95
== END 2020-10-07 19:17 | disposition home or self-care (01) ==
PROVIDERS: Physician Assistant; Emergency Provider Nurse Practitioner Family; PCP Nurse Practitioner Family
DX: K59.1 Functional diarrhea (principal); E11.9 Type 2 diabetes mellitus without complications; I10 Essential (primary) hypertension; E78.5 Hyperlipidemia, unspecified; Z87.891 Personal history of nicotine dependence
CPT/HCPCS: 74177; 80053; 81003; 82274; 83630; 83690; 85025; 87493; 87506; 99283; Q9967

== ENCOUNTER → 2020-11-18 10:06 | Outpatient (BNVA) | payer MEDICARE, SELFPAY | PROVIDERS: PCP Nurse Practitioner Family; Visit Provider Nurse Practitioner Family | DX: I10 Essential (primary) hypertension (principal); E78.2 Mixed hyperlipidemia; E11.9 Type 2 diabetes mellitus without complications | CPT/HCPCS: 80053; 80061; 83036; 85025 ==

== ENCOUNTER → 2020-11-19 13:35 | Outpatient (BNVA) | payer MEDICARE, SELFPAY | PROVIDERS: PCP Nurse Practitioner Family; Visit Provider Nurse Practitioner Family | DX: E11.9 Type 2 diabetes mellitus without complications (principal) | CPT/HCPCS: 82043 ==

== ENCOUNTER → 2020-11-30 15:14 | Outpatient (BNVA) | payer MEDICARE, SELFPAY | PROVIDERS: PCP Nurse Practitioner Family; Visit Provider Nurse Practitioner Family | DX: M25.562 Pain in left knee (principal) | CPT/HCPCS: 73562 ==

== ENCOUNTER → 2021-02-17 14:26 | Outpatient (BNVA) | payer MEDICARE, SELFPAY | PROVIDERS: PCP Nurse Practitioner Family; Visit Provider Nurse Practitioner Family | DX: N30.00 Acute cystitis without hematuria (principal) | CPT/HCPCS: 81003; 87077; 87086; 87184 ==

== ENCOUNTER → 2021-05-25 08:32 | Outpatient (BNVA) | payer MEDICARE, SELFPAY | PROVIDERS: PCP Nurse Practitioner Family; Visit Provider Nurse Practitioner Family | DX: E78.5 Hyperlipidemia, unspecified (principal); E11.9 Type 2 diabetes mellitus without complications; I10 Essential (primary) hypertension; N39.0 Urinary tract infection, site not specified | CPT/HCPCS: 80053; 80061; 81003; 82043; 83036; 84443; 85025; 87086 ==

== ENCOUNTER → 2021-08-04 16:37 | Outpatient (BNVA) | payer MEDICARE, SELFPAY | PROVIDERS: PCP Nurse Practitioner Family; Visit Provider Nurse Practitioner Family | DX: M25.561 Pain in right knee (principal); M25.562 Pain in left knee; M25.572 Pain in left ankle and joints of left foot | CPT/HCPCS: 73562 ==

== ENCOUNTER → 2021-08-11 09:11 | Outpatient (BNVA) | payer MEDICARE, SELFPAY | PROVIDERS: PCP Nurse Practitioner Family; Referring Provider Nurse Practitioner Family; Visit Provider Nurse Practitioner Family | DX: M17.0 Bilateral primary osteoarthritis of knee (principal); M25.561 Pain in right knee; M25.562 Pain in left knee | CPT/HCPCS: 73560; 73565; 99203; 99204 ==

== ENCOUNTER → 2021-09-13 15:42 | Outpatient (BNVA) | payer MEDICARE, SELFPAY | PROVIDERS: PCP Nurse Practitioner Family; Visit Provider Family Medicine | DX: R30.0 Dysuria (principal); N30.00 Acute cystitis without hematuria | CPT/HCPCS: 81003; 87077; 87086; 87184 ==

== ENCOUNTER → 2021-12-20 09:00 | Outpatient (BNVA) | payer MEDICARE, SELFPAY | PROVIDERS: PCP Nurse Practitioner Family; Visit Provider Nurse Practitioner Family | DX: E55.9 Vitamin D deficiency, unspecified (principal); E78.2 Mixed hyperlipidemia; E11.22 Type 2 diabetes mellitus with diabetic chronic kidney disease; I12.9 Hypertensive chronic kidney disease with stage 1 through stage 4 chronic kidney disease, or unspecified chronic kidney disease; N18.9 Chronic kidney disease, unspecified | CPT/HCPCS: 80053; 80061; 82306; 83036; 85025 ==

== ENCOUNTER → 2021-12-21 13:17 | Outpatient (BNVA) | payer MEDICARE, SELFPAY | PROVIDERS: PCP Nurse Practitioner Family; Visit Provider Nurse Practitioner Family | DX: N39.0 Urinary tract infection, site not specified (principal) | CPT/HCPCS: 81000; 81003; 87077; 87086; 87184 ==

== ENCOUNTER → 2022-01-04 11:08 | Outpatient (BNVA) | payer MEDICARE, SELFPAY | PROVIDERS: PCP Nurse Practitioner Family; Visit Provider Nurse Practitioner Family | DX: N39.0 Urinary tract infection, site not specified (principal) | CPT/HCPCS: 81003; 87077; 87086; 87184 ==

== ENCOUNTER → 2022-01-19 13:34 | Outpatient (BNVA) | payer MEDICARE, SELFPAY | PROVIDERS: PCP Nurse Practitioner Family; Visit Provider Nurse Practitioner Family | DX: R30.9 Painful micturition, unspecified (principal) | CPT/HCPCS: 81003 ==

== ENCOUNTER → 2022-02-09 10:14 | Outpatient (BNVA) | payer MEDICARE, SELFPAY | PROVIDERS: PCP Nurse Practitioner Family; Visit Provider Nurse Practitioner Family | DX: N39.0 Urinary tract infection, site not specified (principal) | CPT/HCPCS: 81003; 87077; 87086; 87184 ==

== ENCOUNTER → 2022-03-03 13:56 | Outpatient (BNVA) | payer MEDICARE, SELFPAY | PROVIDERS: PCP Nurse Practitioner Family; Visit Provider Nurse Practitioner Family | DX: N39.0 Urinary tract infection, site not specified (principal) | CPT/HCPCS: 81003; 87077; 87086; 87184 ==

== ENCOUNTER → 2022-03-21 09:30 | Outpatient (BNVA) | payer MEDICARE, SELFPAY | PROVIDERS: PCP Nurse Practitioner Family; Visit Provider Nurse Practitioner Family | DX: I10 Essential (primary) hypertension (principal); E11.9 Type 2 diabetes mellitus without complications; N39.0 Urinary tract infection, site not specified; E78.2 Mixed hyperlipidemia | CPT/HCPCS: 80053; 80061; 81003; 83036; 85025; 87077; 87086; 87184 ==

== ENCOUNTER → 2022-05-23 15:00 | Outpatient (BNVA) | payer MEDICARE, SELFPAY | PROVIDERS: PCP Nurse Practitioner Family; Visit Provider Nurse Practitioner Family | DX: N39.0 Urinary tract infection, site not specified (principal) | CPT/HCPCS: 81003; 87086; 87184 ==

== ENCOUNTER → 2022-06-13 08:47 | Outpatient (BNVA) | payer MEDICARE, SELFPAY | PROVIDERS: PCP Nurse Practitioner Family; Visit Provider Nurse Practitioner Family | DX: E78.2 Mixed hyperlipidemia; E11.9 Type 2 diabetes mellitus without complications; I10 Essential (primary) hypertension | CPT/HCPCS: 80053; 80061; 82043; 83036; 84443; 85025 ==

== ENCOUNTER → 2022-06-21 13:20 | Outpatient (BNVA) | payer MEDICARE, SELFPAY | PROVIDERS: PCP Nurse Practitioner Family; Visit Provider Nurse Practitioner Family | DX: R39.9 Unspecified symptoms and signs involving the genitourinary system (principal) | CPT/HCPCS: 87184 ==

== ENCOUNTER 2022-06-28 11:20 | Emergency (ER) | payer MEDICARE, SELFPAY ==
[2022-06-28 11:53] VITALS: BMI 26.2
[2022-06-28 11:59] VITALS: BP 176/100; PULSE 84; RESP 16; TEMP 36.7; O2SAT 97
[2022-06-28 12:39] LABS: Add Urine Microscopic? NO; Charge for UA Resulting for Rev
[2022-06-28 12:50] LABS: Bilirubin Urine Neg (Negative); Blood Urine Neg (Negative); Glucose Urine UA Norm (Normal); Ketones Urine Negative (Negative); Leukocyte Esterase Urine Negative (Negative); Nitrate Urine Negative (Negative); Protein Urine Neg (Negative); Specific Gravity, Urine 1.005 (1.005-1.030); Urine Appearance Clear (CLEAR); Urine Color Straw (Yellow); Urobilinogen Urine Norm (Negative); pH Urine 6 (5-7)
[2022-06-28 12:57] LABS: Basophils # 0.1 10^3/uL (0.0-0.1); Basophils % 0.8 %; Eosinophils # 0.1 10^3/uL (0.0-0.8); Eosinophils % 1.8 %; Hematocrit 44.2 % (37.0-47.0); Hemoglobin 14.3 g/dL (11.5-15.3); Lymphocytes # 1.7 10^3/uL (0.8-4.8); Mean Corpuscular HGB Conc 32.4 g/dL (30.0-36.0); Mean Corpuscular Hemoglobin 30.9 pg (28.0-34.0); Mean Corpuscular Volume 95.5 fl (81-99); Mean Platelet Volume 9.8 fL (7.4-10.4); Monocytes # 0.6 10^3/uL (0.2-0.9); Neutrophils # 5.06 10^3/uL (1.8-7.7); Neutrophils % 66.9 %; Nucleated Red Blood Cells % 0 %; Platelet Count 324 10^3/cmm (130-400); Red Blood Count 4.63 10^6/uL (4.1-5.3); Red Cell Distribution Width 12.7 % (12.1-15.1); White Blood Count 7.6 10^3/uL (4.0-10.0)
[2022-06-28 13:17] LABS: Alanine Aminotransferase 13 U/L (0-33); Albumin Level 4.4 g/dL (3.5-5.2); Alkaline Phosphatase 83 U/L (35-105); Anion Gap 17.7 (5-19); Aspartate Amino Transferase 15 U/L (0-32); Blood Urea Nitrogen 13 mg/dL (8-23); Calcium 9.2 mg/dL (8.5-10.5); Carbon Dioxide 23 mmol/L (22-29); Chloride 101 mmol/L (98-107); Globulin 3.3 g/dL (1.3-4.6); Glucose 146 mg/dL (65-115); Osmolality Calculated 287 mOsm/kg (285-295); Potassium 4.7 mmol/L (3.5-5.1); Sodium 137 mmol/L (136-145); Total Bilirubin 0.2 mg/dL (0.15-1.2); Total Protein 7.7 g/dL (6.6-8.7)
--- NOTE | 2022-06-28 15:31 | W.ED.FEMALGU ---
HPI - Female Genitourinary General: Chief complaint: Urogenital-Female Stated complaint: urogenital Time Seen by Provider: 06/28/22 15:06 Source: patient Mode of arrival: ambulatory History of Present Illness: 82-year-old female presents emergency room she has multiple complaints with most of which are chronic that she has been seeing her primary care provider for. She had recurrent UTIs she is currently finishing a course of antibiotics she has hemorrhoids they were painful this morning but they are not now they have not been bleeding she has been using prescription suppositories they seem to be helping. Finally she is concerned she may have a hernia she has an ultrasound scheduled for the of this month and is currently not having any pain no vomiting or no diarrhea. She states she has been on multiple antibiotics recently for her UTI it seems to recur they are making an appoint for to follow-up with urology. MD elicited complaint: dysuria and other (hemorrhiods) Onset (ago): week(s) Associated symptoms: Deny abdominal pain or nausea Review of Systems Const: Denies: fever(s), chills, body aches, change in appetite, fatigue or malaise ENMT: Denies: throat pain, ear or mastoid pain, nasal discharge or nasal congestion Card: Denies: chest pain, palpitations, irregular heart rhythm, edema, dyspnea on exertion or orthopnea Resp: Denies: dyspnea, productive cough or non-productive cough GI: Denies: abdominal pain, nausea, vomiting, hematemesis, coffee ground emesis, diarrhea, constipation, bloating, hematochezia or melena : Denies: flank pain, difficulty voiding, dysuria, urinary frequency or urinary urgency Skin/Breast: Denies: rash or pruritus PFSH ED PFSH: Medical History Diabetes Essential hypertension Gluten intolerance Hyperlipidemia Retrolisthesis Surgical History History of ankle surgery History of cataract surgery History of colonoscopy 08-12-2019; repeat in August 2024 Family History Mother Cancer Father Diabetes Social History Smoking and tobacco status: former smoker Quit status (tobacco): has quit using tobacco Year quit tobacco: 1979 Former quit date comment: PPD x 10 yrs Second hand smoke exposure: No Alcohol intake: never Substance/Drug Use: never Caregiver/support person: Yes Lives independently: Yes Household members: none Marital status: / service: No Current occupational status: retired Current gender identity: Female Special flaco needs: No Physical Exam Const: COMMON NORMALS: no acute distress GENERAL APPEARANCE: cooperative and comfortable ORIENTATION/CONSCIOUSNESS: Yes awake, Yes oriented to person, Yes oriented to place and Yes oriented to time HENMT: COMMON NORMALS: normocephalic, atraumatic and hearing grossly normal bilaterally HEAD & SCALP: normocephalic and atraumatic Resp: COMMON NORMALS: normal respiratory effort, No retractions, No use of accessory muscles and clear to auscultation bilaterally AUSCULTATION: clear to auscultation bilaterally Cardio: COMMON NORMALS: regular rate, regular rhythm and No murmurs present (Cardio) RATE: regular rate RHYTHM: regular rhythm GI: COMMON NORMALS: Soft to palpation and No hepatosplenomegaly present AUSCULTATION: Yes normoactive bowel sounds PALPATION: Yes Soft to palpation, No Tenderness to palpation present (GI), No Guarding due to palpation present (GI) and Yes No hepatosplenomegaly present Extremity: COMMON NORMALS: normal to inspection, capillary refill normal, no clubbing, cyanosis or edema, no calf tenderness and no pedal edema Neuro: SENSORIUM/ORIENTATION: Yes oriented to person, Yes oriented to place and Yes oriented to time Skin: COMMON NORMALS: no rashes or lesions noted GENERAL SKIN EXAM: no rashes or lesions noted Course Vital Signs: Vital signs: Vital Signs Temperature 98.1 F 06/28/22 11:59 Pulse Rate 84 06/28/22 11:59 Respiratory Rate 16 06/28/22 11:59 Blood Pressure 176/100 06/28/22 11:59 Pulse Oximetry 97 06/28/22 11:59 Oxygen Delivery Me thod Room Air 06/28/22 11:59 MDM - Female Medical Decision Making Laboratory test unremarkable UA is negative. The current treatment seem to be improving her issues. At this point would not recommend anything new or different she should probably follow-up with the urologist since she is getting recurrent UTIs. They are working on getting into a surgeon to evaluate her hemorrhoids they are not acutely bleeding and are not painful at this time. She did follow through with the abdominal ultrasound on abdominal exam today is benign abdomen good bowel sounds no signs of obstruction. No emergent process at this time we will discharge patient home have her follow through with scheduled primary care provider work-up plan. Medical Records I reviewed the patient's medical records. Lab Data I reviewed the patient's lab results. 06/28/22 12:45 06/28/22 12:45 Laboratory Results WBC 7.6 10^3/uL (4.0-10.0) 06/28/22 12:45 RBC 4.63 10^6/uL (4.1-5.3) 06/28/22 12:45 Hgb 14.3 g/dL (11.5-15.3) 06/28/22 12:45 Hct 44.2 % (37.0-47.0) 06/28/22 12:45 MCV 95.5 fl (81-99) 06/28/22 12:45 MCH 30.9 pg (28.0-34.0) 06/28/22 12:45 MCHC 32.4 g/dL (30.0-36.0) 06/28/22 12:45 RDW 12.7 % (12.1-15.1) 06/28/22 12:45 Plt Count 324 10^3/cmm (130-400) 06/28/22 12:45 MPV 9.8 fL (7.4-10.4) 06/28/22 12:45 Neut % (Auto) 66.9 % 06/28/22 12:45 Lymph % (Auto) 22.0 % 06/28/22 12:45 [place] % (Auto) 8.0 % 06/28/22 12:45 Eos % (Auto) 1.8 % 06/28/22 12:45 Baso % (Auto) 0.8 % 06/28/22 12:45 Neut # (Auto) 5.06 10^3/uL (1.8-7.7) 06/28/22 12:45 Lymph # (Auto) 1.7 10^3/uL (0.8-4.8) 06/28/22 12:45 [place] # (Auto) 0.6 10^3/uL (0.2-0.9) 06/28/22 12:45 Eos # (Auto) 0.1 10^3/uL (0.0-0.8) 06/28/22 12:45 Baso # (Auto) 0.1 10^3/uL (0.0-0.1) 06/28/22 12:45 Nucleated RBC % (auto) 0 % 06/28/22 12:45 Nucleated RBCs # 0.0 /100WBC 06/28/22 12:45 Sodium 137 mmol/L (136-145) 06/28/22 12:45 Potassium 4.7 mmol/L (3.5-5.1) 06/28/22 12:45 Chloride 101 mmol/L (98-107) 06/28/22 12:45 Carbon Dioxide 23 mmol/L (22-29) 06/28/22 12:45 Anion Gap 17.7 (5-19) 06/28/22 12:45 BUN 13 mg/dL (8-23) 06/28/22 12:45 Creatinine 1.0 mg/dL (0.5-0.9) H 06/28/22 12:45 GFR Calculation Not Reportable 06/28/22 12:45 Glucose 146 mg/dL (65-115) H 06/28/22 12:45 Calculated Osmolality 287 mOsm/kg (285-295) 06/28/22 12:45 Calcium 9.2 mg/dL (8.5-10.5) 06/28/22 12:45 Total Bilirubin 0.2 mg/dL (0.15-1.2) 06/28/22 12:45 AST 15 U/L (0-32) 06/28/22 12:45 ALT 13 U/L (0-33) 06/28/22 12:45 Alkaline Phosphatase 83 U/L (35-105) 06/28/22 12:45 Total Protein 7.7 g/dL (6.6-8.7) 06/28/22 12:45 Albumin 4.4 g/dL (3.5-5.2) 06/28/22 12:45 Globulin 3.3 g/dL (1.3-4.6) 06/28/22 12:45 Urine Color Straw (Yellow) 06/28/22 12:08 Urine Appearance Clear (CLEAR) 06/28/22 12:08 Urine pH 6 (5-7) 06/28/22 12:08 Ur Specific [place] 1.005 (1.005-1.030) 06/28/22 12:08 Urine Protein Neg (Negative) 06/28/22 12:08 Urine Glucose (UA) Norm (Normal) 06/28/22 12:08 Urine Ketones Negative (Negative) 06/28/22 12:08 Urine Blood Neg (Negative) 06/28/22 12:08 Urine Nitrate Negative (Negative) 06/28/22 12:08 Urine Bilirubin Neg (Negative) 06/28/22 12:08 Urine Urobilinogen Norm mg/dL (Negative) 06/28/22 12:08 Ur Leukocyte Esterase Negative (Negative) 06/28/22 12:08 Discharge Plan Discharge Patient Disposition: Home Clinical Impression: Recurrent UTI, Hemorrhoids Condition: Stable Prescriptions: No Action lidocaine-epinephrine 1 %-1:100,000 solution 1 ml SUBCUT ONCE Qty: 20 0RF biotin 5 mg capsule 5 mg PO BID coenzyme Q10 [CoQ-10] 100 mg capsule 100 mg PO DAILY omega 9-nyi-kix-fish oil [Fish Oil] 1,000 mg (120 mg-180 mg) capsule 1 cap PO DAILY (DME) ASO to the left See Rx Instructions .Route .MEDSUPPLY Qty: 1 0RF Rx Instructions: As directed fexofenadine-pseudoephedrine [Vanessa-D 12 Hour] 60-120 mg tablet extended release 12 hr 1 tab PO Q12H PRN (Reason: allergy symptoms) Qty: 20 0RF atorvastatin 20 mg tablet See Rx Instructions .ROUTE .COMPLEX Qty: 90 0RF Dose Instruction: TAKE 1 TABLET BY MOUTH AT BEDTIME Rx Instructions: TAKE 1 TABLET BY MOUTH AT BEDTIME benazepril 40 mg tablet See Rx Instructions .ROUTE .COMPLEX Qty: 45 0RF Dose Instruction: Take 1/2 (one-half) tablet by mouth once daily Rx Instructions: Take 1/2 (one-half) tablet by mouth once daily glipizide 5 mg tablet extended release 24hr See Rx Instructions .ROUTE .COMPLEX Qty: 180 0RF Dose Instruction: TAKE 1 TABLET BY MOUTH TWICE DAILY AT 12PM AND 6PM Rx Instructions: TAKE 1 TABLET BY MOUTH TWICE DAILY AT 12PM AND 6PM pantoprazole 40 mg tablet,delayed release (DR/EC) See Rx Instructions .ROUTE .COMPLEX Qty: 90 0RF Dose Instruction: Take 1 tablet by mouth once daily Rx Instructions: Take 1 tablet by mouth once daily ketoconazole 2 % cream 1 applic topical BID 10 Days Qty: 60 0RF amoxicillin-pot clavulanate 875-125 mg tablet 1 tab PO BID 10 Days Qty: 20 0RF hydrocortisone [Anusol-HC] 2.5 % cream with perineal applicator 1 applic MO TID PRN (Reason: hemorrhoid) Qty: 30 0RF acetaminophen [Tylenol Extra Strength] 500 mg Tablet 1,000 mg PO PRN Discharge Orders: Discharge ED (Routine); Ordered 06/28/22 Ordered By: Hitesh Felix Referrals: Tori Rivera FNP [Primary Care Provider] - Discharge Diet: Usual diet Discharge Activity: Resume usual activity Patient Instructions: Opioid Safety, Pain Management Activity Restrictions/Additional Instructions: Continue current medications and scheduled referrals and outpatient testing as per your primary care physician. Discussed with your primary care physician referral to general surgery for the hemorrhoids and urology for the recurrent bladder infections for now complete the previously prescribed antibiotic Coding Level of Care Code ED [employer] for Rajan Chapa
== END 2022-06-28 15:38 | disposition home or self-care (01) ==
PROVIDERS: Physician Assistant; Emergency Provider Family Medicine; PCP Nurse Practitioner Family
DX: N39.0 Urinary tract infection, site not specified (principal); K64.9 Unspecified hemorrhoids; Z87.440 Personal history of urinary (tract) infections; Z79.84 Long term (current) use of oral hypoglycemic drugs; E11.9 Type 2 diabetes mellitus without complications; I10 Essential (primary) hypertension; E78.5 Hyperlipidemia, unspecified; Z87.891 Personal history of nicotine dependence
CPT/HCPCS: 36415; 80053; 81003; 85025; 99283

== ENCOUNTER 2022-07-07 07:24 | Outpatient (CLI) | payer MEDICARE, SELFPAY ==
--- NOTE | 2022-07-07 08:00 | US_ITS ---
WS: [id number] Complete ABDOMINAL ULTRASOUND HISTORY: R19.00 - Intra-abdominal and pelvic swelling, mass COMPARISON: None available. In the area the palpable abnormality in the RIGHT lower quadrant is a large amount shadowing from bow el gas. This area is not very well visualized due to the bowel gas. Liver: 10.8 cm in length. Normal size liver and echogenicity. No bile duct dilatation or mass. Portal Vein: Normal hepatopetal flow with monophasic waveform. Gallbladder: Normally distended gallbladder with no stones or wall thickening. CBD: 0.2 cm Pancreas: Obscured by bowel gas. Right kidney: 8.2 cm x 4.0 x 3.6 cm. Cortex:0.8 cm. Mild atrophy with normal echogenicity. No hydronephrosis or mass. Left kidney: 8.1 cm x 4.7 cm x 3.6 cm. Cortex: 0.8 cm. Mild atrophy with normal echogenicity. No hydronephrosis or mass. Cortical cyst probable upper pole w ith a maximum diameter of 9 mm. Spleen: Normal with granulomata. Aorta and IVC: Unremarkable abdominal aorta and IVC. US/US abdomen complete* [id number] Impression: 1. Palpable area in the RIGHT lower quadrant is completely obscured by shadowi ng from bowel gas and GI tract content. Clinically if there is a palpable mass additional evaluation should be obtained. Recommend follow-up CT abdomen and pe lvis with IV and oral contrast. 2. Normal gallbladder. 3. Mild renal atrophy. No hydronephrosis.
== END 2022-07-07 07:25 | disposition home or self-care (01) ==
LOC: RAD 07:26
PROVIDERS: PCP Nurse Practitioner Family; Visit Provider Nurse Practitioner Family
DX: R19.03 Right lower quadrant abdominal swelling, mass and lump (principal); N26.1 Atrophy of kidney (terminal)
CPT/HCPCS: 76700; 81000; 81003; 87086

== ENCOUNTER 2022-07-20 14:50 | Outpatient (CLI) | payer MEDICARE, SELFPAY ==
--- NOTE | 2022-07-20 16:30 | CTR_ITS ---
PROCEDURE INFORMATION: Exam: CT Abdomen And Pelvis With Contrast Exam date and time: 07/20/2022 4:35 PM Age: 82 years old Clinical indication: Mass, lump, or swelling; Rlq; Patient HX: RT side abdomen-lump x 3-4 weeks; Additional info: R19.00 - intra-abdominal and pelvic swelling, mass and antoine. . . TECHNIQUE: Imaging protocol: Computed tomography of the abdomen and pelvis with contrast. Radiation optimization: All CT scans at this facility use at least one of these dose optimization techniques: automated exposure control; mA and/or kV adjustment per patient size (includes targeted exams where dose is matched to clinical indication); or iterative reconstruction. Contrast material: OMNI 350; Contrast volume: 95 ml; Contrast route: INTRAVENOUS (IV); REPORTING DATA: Count of CT and Cardiac NM exams in prior 12 months: This patient has received 0 known CTs and 0 known cardiac nuclear medicine studies in the 12 months prior to the current study. COMPARISON: CT abdomen pelvis w con* [id number] 10/07/2020 6:22 PM RADIATION DOSE METRICS: Total DLP (mGy-cm): 287.08 FINDINGS: Lungs: Right middle and lingular lobe atelectasis versus minimal infiltrate. Liver: Hepatic steatosis. Gallbladder and bile ducts: Cholelithiasis. Pancreas: Normal. No ductal dilation. Spleen: Normal. No splenomegaly. Adrenal glands: Normal. No mass. Kidneys and ureters: Bilateral renal cysts, negative for follow-up advised. Stomach and bowel: Constipation. Appendix: No evidence of appendicitis. Intraperitoneal space: Unremarkable. No free air. No significant fluid collection. Vasculature: Unremarkable. No abdominal aortic aneurysm. Lymph nodes: Unremarkable. No enlarged lymph nodes. Urinary bladder: Unremarkable as visualized. Reproductive: Unremarkable as visualized. Bones/joints: T9 vertebral body stable chronic compression fracture without retropulsion of bony fragments. Soft tissues: Unremarkable. CT/CT abdomen pelvis w con* [id number] IMPRESSION: 1. Right middle and lingular lobe atelectasis versus minimal infiltrate. 2. Hepatic steatosis. 3. Cholelithiasis. 4. Constipation. 5. T9 vertebral body stable chronic compression fracture without retropulsion of bony fragments. 6. Bilateral renal cysts, negative for follow-up advised. COMMENTS: Consistent with the [employer]'s Incidental Findings Committee white paper (J Am Yung Radiol 2018): Any incidental renal lesion less than 1 cm or classified as too small to characterize, or any incidental cystic renal lesion characterized as simple-appearing, is likely benign. No follow-up imaging is recommended for these lesions per consensus recommendations based on imaging criteria.
[2022-07-20] MEDS: iohexol 350 mg/mL 500 mL Btl (per mL) PO (16:41)
[2022-07-20] MEDS: iohexol 350 mg/mL 500 mL Btl (per mL) IV (16:41)
== END 2022-07-20 14:51 | disposition home or self-care (01) ==
LOC: RAD 14:53
PROVIDERS: PCP Nurse Practitioner Family; Visit Provider Nurse Practitioner Family
DX: R19.00 Intra-abdominal and pelvic swelling, mass and lump, unspecified site (principal); K80.20 Calculus of gallbladder without cholecystitis without obstruction; K59.00 Constipation, unspecified; K76.0 Fatty (change of) liver, not elsewhere classified; N28.1 Cyst of kidney, acquired
CPT/HCPCS: 74177; Q9967

== ENCOUNTER → 2022-09-16 08:30 | Outpatient (BNVA) | payer MEDICARE, SELFPAY | PROVIDERS: PCP Nurse Practitioner Family; Visit Provider Nurse Practitioner Family | DX: I10 Essential (primary) hypertension (principal); E11.9 Type 2 diabetes mellitus without complications; E78.5 Hyperlipidemia, unspecified; N18.9 Chronic kidney disease, unspecified | CPT/HCPCS: 80053; 80061; 83036; 84443; 85025 ==

== ENCOUNTER → 2022-10-13 14:12 | Outpatient (BNVA) | payer MEDICARE, SELFPAY | PROVIDERS: PCP Nurse Practitioner Family; Referring Provider Nurse Practitioner Family; Visit Provider Surgery | DX: K64.9 Unspecified hemorrhoids (principal) | CPT/HCPCS: 99204 ==

== ENCOUNTER → 2022-11-25 09:22 | Outpatient (BNVA) | payer MEDICARE, SELFPAY | PROVIDERS: PCP Nurse Practitioner Family; Visit Provider Nurse Practitioner Family | DX: N39.0 Urinary tract infection, site not specified (principal); Z23 Encounter for immunization | CPT/HCPCS: 81003 ==

== ENCOUNTER → 2022-12-19 11:40 | Outpatient (BNVA) | payer MEDICARE, SELFPAY | PROVIDERS: PCP Nurse Practitioner Family; Visit Provider Nurse Practitioner Family | DX: E11.9 Type 2 diabetes mellitus without complications (principal); I10 Essential (primary) hypertension; N18.9 Chronic kidney disease, unspecified; N39.0 Urinary tract infection, site not specified; E78.2 Mixed hyperlipidemia | CPT/HCPCS: 80053; 80061; 81003; 82043; 83036; 84443; 85025 ==

== ENCOUNTER → 2023-01-24 16:20 | Outpatient (BNVA) | payer MEDICARE, SELFPAY | PROVIDERS: PCP Nurse Practitioner Family; Visit Provider Nurse Practitioner Family | DX: N39.0 Urinary tract infection, site not specified (principal) | CPT/HCPCS: 81000 ==

== ENCOUNTER → 2023-03-20 10:14 | Outpatient (BNVA) | payer MEDICARE, SELFPAY | PROVIDERS: PCP Nurse Practitioner Family; Visit Provider Nurse Practitioner Family | DX: N18.9 Chronic kidney disease, unspecified (principal); I10 Essential (primary) hypertension; E11.9 Type 2 diabetes mellitus without complications | CPT/HCPCS: 80053; 83036; 85025 ==

== ENCOUNTER 2023-04-21 13:59 | Outpatient (CLI) | payer MEDICARE, SELFPAY ==
--- NOTE | 2023-04-21 14:05 | US_ITS ---
WS: [id number] RENAL ULTRASOUND HISTORY: RECURRENT UTI COMPARISON: None available. TECHNIQUE: 2-D and color Doppler imaging of the kidney submitted. Right kidney: 7.9 cm x 3.0 cm x 3.5 cm. Cortex: 0.9 cm Mild atrophy and cortical thinning similar to the prior study. No obstruction or mass. Left kidney: 8.5 cm x 4.7 cm x 2.8 cm. Cortex: 1.0 cm Mild atrophy and cortical thinning similar to the prior study. Cortical cyst in the superior pole agnes sures 1.0 x 0.7 x 0.6 cm. Aorta: Normal. Urinary Bladder: Minimally distended bladder. There is mild wall thickening which is probably due to only partial distention. No mass. IMPRESSION: 1. No renal obstruction or hydronephrosis. 2. Mild atrophy and cortical thinning. Similar to 07/07/2022. 3. Stable cortical cyst upper pole LEFT kidney.
--- NOTE | 2023-04-21 14:05 | XR_ITS ---
WS: [id number] KUB, AP view, 04/21/2023 Clinical Data: RECURRENT UTI Comparison: KUB and upright abdomen, 09/13/2020 Findings: No abnormal intraabdominal masses or calcifications are seen. There is no dilatated small bowel or ev idence of obstruction. There is a large amount of fecal material throughout the colon. Impression: Large amount of fecal material in the colon.
== END 2023-04-21 14:00 | disposition home or self-care (01) ==
LOC: RAD 13:59
PROVIDERS: PCP Nurse Practitioner Family; Visit Provider Urology
DX: N28.1 Cyst of kidney, acquired (principal); N26.1 Atrophy of kidney (terminal); N39.0 Urinary tract infection, site not specified
CPT/HCPCS: 74018; 76770

== ENCOUNTER → 2023-06-14 09:00 | Outpatient (BNVA) | payer MEDICARE, SELFPAY | PROVIDERS: PCP Nurse Practitioner Family; Visit Provider Nurse Practitioner Family | DX: N39.0 Urinary tract infection, site not specified (principal); E11.9 Type 2 diabetes mellitus without complications; E78.2 Mixed hyperlipidemia | CPT/HCPCS: 80053; 80061; 81000; 83036; 85025 ==

== ENCOUNTER → 2023-07-08 11:46 | Outpatient (BNVA) | payer MEDICARE, SELFPAY | PROVIDERS: PCP Nurse Practitioner Family; Visit Provider Emergency Medicine | DX: R39.9 Unspecified symptoms and signs involving the genitourinary system (principal); N30.00 Acute cystitis without hematuria | CPT/HCPCS: 81000; 87086 ==

== ENCOUNTER → 2023-09-05 15:34 | Outpatient (BNVA) | payer MEDICARE, SELFPAY | PROVIDERS: PCP Nurse Practitioner Family; Visit Provider Nurse Practitioner Family | DX: R30.0 Dysuria (principal); N30.00 Acute cystitis without hematuria | CPT/HCPCS: 81003; 87086 ==

== ENCOUNTER → 2023-09-26 15:55 | Outpatient (BNVA) | payer MEDICARE, SELFPAY | PROVIDERS: PCP Nurse Practitioner Family; Visit Provider Nurse Practitioner Family | DX: N39.0 Urinary tract infection, site not specified (principal); N30.00 Acute cystitis without hematuria | CPT/HCPCS: 81000; 87086 ==

== ENCOUNTER → 2023-10-13 14:55 | Outpatient (BNVA) | payer MEDICARE, SELFPAY | PROVIDERS: PCP Nurse Practitioner Family; Visit Provider Nurse Practitioner Family | DX: R30.0 Dysuria | CPT/HCPCS: 81000 ==

== ENCOUNTER → 2023-10-14 10:44 | Outpatient (BNVA) | payer MEDICARE, SELFPAY | PROVIDERS: PCP Nurse Practitioner Family; Visit Provider Emergency Medicine | DX: J06.9 Acute upper respiratory infection, unspecified (principal) | CPT/HCPCS: 87426 ==

== ENCOUNTER → 2023-11-03 16:17 | Outpatient (BNVA) | payer MEDICARE, SELFPAY | PROVIDERS: PCP Nurse Practitioner Family; Visit Provider Nurse Practitioner Family | DX: N39.0 Urinary tract infection, site not specified (principal) | CPT/HCPCS: 81000 ==

== ENCOUNTER → 2023-12-05 13:44 | Outpatient (BNVA) | payer MEDICARE, SELFPAY | PROVIDERS: PCP Nurse Practitioner Family; Visit Provider Nurse Practitioner Family | DX: R30.0 Dysuria (principal); N30.00 Acute cystitis without hematuria | CPT/HCPCS: 81000; 87086 ==

== ENCOUNTER → 2023-12-12 11:15 | Outpatient (BNVA) | payer MEDICARE, SELFPAY | PROVIDERS: PCP Nurse Practitioner Family; Visit Provider Nurse Practitioner Family | DX: E11.9 Type 2 diabetes mellitus without complications (principal); Z79.899 Other long term (current) drug therapy | CPT/HCPCS: 80053; 80061; 82306; 83036; 85025 ==

== ENCOUNTER → 2023-12-26 13:34 | Outpatient (BNVA) | payer MEDICARE, SELFPAY | PROVIDERS: PCP Nurse Practitioner Family; Visit Provider Nurse Practitioner Family | DX: N30.00 Acute cystitis without hematuria (principal) | CPT/HCPCS: 81000; 87086 ==

== ENCOUNTER → 2024-01-06 16:04 | Outpatient (BNVA) | payer MEDICARE, SELFPAY | PROVIDERS: PCP Nurse Practitioner Family; Visit Provider Registered Nurse Neonatal Intensive Care | DX: R39.9 Unspecified symptoms and signs involving the genitourinary system (principal) | CPT/HCPCS: 81000; 87086 ==

== ENCOUNTER → 2024-02-27 13:31 | Outpatient (BNVA) | payer MEDICARE, SELFPAY | PROVIDERS: PCP Nurse Practitioner Family; Visit Provider Nurse Practitioner Family | DX: R39.9 Unspecified symptoms and signs involving the genitourinary system (principal) | CPT/HCPCS: 81000; 87086 ==

== ENCOUNTER → 2024-03-12 09:06 | Outpatient (BNVA) | payer MEDICARE, SELFPAY | PROVIDERS: PCP Nurse Practitioner Family; Visit Provider Nurse Practitioner Family | DX: I10 Essential (primary) hypertension (principal); E11.9 Type 2 diabetes mellitus without complications; E78.2 Mixed hyperlipidemia | CPT/HCPCS: 80053; 80061; 83036; 84443; 85025 ==

== ENCOUNTER → 2024-03-19 13:05 | Outpatient (BNVA) | payer MEDICARE, SELFPAY | PROVIDERS: PCP Nurse Practitioner Family; Visit Provider Nurse Practitioner Family | DX: R30.0 Dysuria (principal); N30.00 Acute cystitis without hematuria | CPT/HCPCS: 81000 ==

== ENCOUNTER → 2024-03-21 11:28 | Outpatient (BNVA) | payer MEDICARE, SELFPAY | PROVIDERS: PCP Nurse Practitioner Family; Visit Provider Nurse Practitioner Family | DX: N30.00 Acute cystitis without hematuria (principal) | CPT/HCPCS: 87086 ==

== ENCOUNTER → 2024-03-25 11:00 | Outpatient (BNVA) | payer MEDICARE, SELFPAY | PROVIDERS: PCP Nurse Practitioner Family; Visit Provider Nurse Practitioner Family | DX: E87.5 Hyperkalemia (principal) | CPT/HCPCS: 80048 ==

== ENCOUNTER → 2024-03-29 13:59 | Outpatient (BNVA) | payer MEDICARE, SELFPAY | PROVIDERS: Family Provider Nurse Practitioner Family; PCP Nurse Practitioner Family; Visit Provider Nurse Practitioner Family | DX: R30.0 Dysuria (principal); E87.5 Hyperkalemia | CPT/HCPCS: 81000 ==

== ENCOUNTER → 2024-04-11 09:26 | Outpatient (BNVA) | payer MEDICARE, SELFPAY | PROVIDERS: Family Provider Nurse Practitioner Family; PCP Nurse Practitioner Family; Visit Provider Nurse Practitioner Family | DX: E87.5 Hyperkalemia (principal) | CPT/HCPCS: 80048 ==

== ENCOUNTER → 2024-06-05 14:14 | Outpatient (BNVA) | payer MEDICARE, SELFPAY | PROVIDERS: Family Provider Nurse Practitioner Family; PCP Nurse Practitioner Family; Visit Provider Nurse Practitioner Family | DX: R39.9 Unspecified symptoms and signs involving the genitourinary system (principal) | CPT/HCPCS: 81000; 87086 ==

== ENCOUNTER → 2024-06-12 11:37 | Outpatient (BNVA) | payer MEDICARE, SELFPAY | PROVIDERS: Family Provider Nurse Practitioner Family; PCP Nurse Practitioner Family; Visit Provider Nurse Practitioner Family | DX: E87.5 Hyperkalemia (principal) | CPT/HCPCS: 80048 ==

== ENCOUNTER → 2024-06-17 14:22 | Outpatient (BNVA) | payer MEDICARE, SELFPAY | PROVIDERS: Family Provider Nurse Practitioner Family; PCP Nurse Practitioner Family; Visit Provider Nurse Practitioner Family | DX: N39.0 Urinary tract infection, site not specified (principal) | CPT/HCPCS: 81000 ==

== ENCOUNTER → 2024-06-18 13:22 | Outpatient (BNVA) | payer MEDICARE, SELFPAY | PROVIDERS: Family Provider Nurse Practitioner Family; PCP Nurse Practitioner Family; Visit Provider Nurse Practitioner Family | DX: N30.00 Acute cystitis without hematuria (principal) | CPT/HCPCS: 87086 ==

== ENCOUNTER → 2024-07-09 13:35 | Outpatient (BNVA) | payer MEDICARE, SELFPAY | PROVIDERS: Family Provider Nurse Practitioner Family; PCP Nurse Practitioner Family; Visit Provider Nurse Practitioner Family | DX: R30.0 Dysuria (principal) | CPT/HCPCS: 81000 ==

== ENCOUNTER → 2024-08-13 12:45 | Outpatient (BNVA) | payer MEDICARE, SELFPAY | PROVIDERS: Family Provider Nurse Practitioner Family; PCP Nurse Practitioner Family; Visit Provider Nurse Practitioner Family | DX: R39.9 Unspecified symptoms and signs involving the genitourinary system (principal) | CPT/HCPCS: 81000; 87086 ==

== ENCOUNTER → 2024-09-12 10:16 | Outpatient (BNVA) | payer MEDICARE, SELFPAY | PROVIDERS: Family Provider Nurse Practitioner Family; PCP Nurse Practitioner Family; Visit Provider Nurse Practitioner Family | DX: Z79.899 Other long term (current) drug therapy (principal); L30.4 Erythema intertrigo; E11.9 Type 2 diabetes mellitus without complications; E78.2 Mixed hyperlipidemia | CPT/HCPCS: 80053; 80061; 82306; 83036; 85025 ==

== ENCOUNTER → 2024-11-04 14:01 | Outpatient (BNVA) | payer MEDICARE, SELFPAY | PROVIDERS: Family Provider Nurse Practitioner Family; PCP Nurse Practitioner Family; Visit Provider Nurse Practitioner Family | DX: R39.9 Unspecified symptoms and signs involving the genitourinary system (principal); R30.0 Dysuria | CPT/HCPCS: 81000; 87086 ==

== ENCOUNTER → 2024-12-11 09:52 | Outpatient (BNVA) | payer MEDICARE, SELFPAY | PROVIDERS: Family Provider Nurse Practitioner Family; PCP Nurse Practitioner Family; Visit Provider Nurse Practitioner Family | DX: E11.9 Type 2 diabetes mellitus without complications (principal); E78.2 Mixed hyperlipidemia; N18.9 Chronic kidney disease, unspecified; Z79.899 Other long term (current) drug therapy | CPT/HCPCS: 80048; 80061; 81003; 82043; 82306; 83036; 85025 ==